=== PATIENT | female | born 1945 | race Caucasian/White ===

== ENCOUNTER 2022-07-16 10:59 | Outpatient (CLI) | payer MEDICARE, OTHER, SELFPAY ==
[2022-07-16 11:30] VITALS: BP 132/78; PULSE 79; RESP 18; O2SAT 98
[2022-07-16] MEDS: TETRACAINE 0.5% OPHTH 1 DROP EYE-RIGHT ×3 (11:34→12:00)
--- NOTE | 2022-07-16 12:18 | P.OPTPRC_ITS ---
Procedure Note Date of procedure: 07/16/22 Will [facility] bill your pro fee for this procedure?: Yes Procedure Description: SURGEON: Mary Barnett MD PREOPERATIVE DIAGNOSIS: Posterior capsular opacity, right eye POSTOPERATIVE DIAGNOSIS: Posterior capsular opacity, right eye PROCEDURE: YAG laser capsulotomy, right eye ANESTHESIA: Topical. ESTIMATED BLOOD LOSS: None PATHOLOGY SPECIMEN: None COMPLICATIONS: None INDICATIONS: See consult note for details. The risks, benefits and alternatives of the procedure were explained to the patient, who elected to proceed and signed informed consent to do so. PROCEDURE: The patient was brought to the pre-holding area where the right eye was identified as the operative eye. I placed my initials above this eye. The patient received 2 sets of 1 drop of 0.5% tetracaine and 1 drop of 1% tropicamide. They also received 1 drop of 2% dorzolazmide (due to brimonidine allergy). They received 1 drop of 0.5% tetracaine immediately prior to bringing them back for the procedure. The patient was then brought to the procedure room where the right eye was again identified as the operative eye. A YAG Brady capsulotomy lens was placed on the eye. The laser was administered using a total number of 22 shots with an energy of 2.4 mJ per shot for a total energy of 53 mJ. The patient tolerated the procedure well. DISPOSITION: The patient was taken back to the pre-holding area and given 1 drop of 2% dorzolamide in the right eye. They were discharged to home in stable condition. The patient was instructed to call me or go to the emergency department with any sudden change, including dramatic loss of vision, severe pain in the eye or eyebrow region, nausea, or vomiting. The patient was instructed to use the 2% dorzolamide 1 drop 2 times a day in the right eye for 1 week (use 3 more times today). The patient will follow up in the clinic in 1-2 weeks. Surgeon: Mary Barnett MD
== END 2022-07-16 12:09 | disposition home or self-care (01) ==
LOC: OP CLINIC 11:03 → EYE PRC 11:07
PROVIDERS: PCP Internal Medicine; Visit Provider Ophthalmology
DX: H26.9 Unspecified cataract (principal)
CPT/HCPCS: 66821

== ENCOUNTER 2022-08-17 13:56 | Emergency (ER) | payer MEDICARE, OTHER, SELFPAY ==
[2022-08-17] VITALS (36 sets, daily range): BP systolic 126–166; BP diastolic 56–97; PULSE 43–83; RESP 20; TEMP 36.4; O2SAT 86–99; BMI 24.3
--- NOTE | 2022-08-17 14:33 | CRLHL7_ITS ---
For Patients: As a result of the Cures Act, medical imaging exams and procedure reports are released immediately into your electronic medical record. You may view this report before your referring provider. If you have questions, please contact your health care provider. INDICATION: Shortness of breath TECHNIQUE: Chest radiograph 1 view COMPARISON: 06/23/2017 FINDINGS: Cardiovascular and mediastinum: Postsurgical changes from median sternotomy. Heart and mediastinal contours are stable. Lungs and pleural spaces: Both lungs are unremarkable in appearance. No sign of pleural effusion seen. No pneumothorax is identified. Bones and soft tissues: No significant findings. IMPRESSION: 1. No acute cardiopulmonary disease is seen. Dictated by Bubba Stratton MD @ 08/17/2022 3:32:12 PM Dictated by: Bubba Stratton MD @ 08/17/2022 15:32:18 (Electronically Signed)
[2022-08-17 15:03] LABS: Basophils Absolute Auto 0.02 K/uL (0.00-0.30); Basophils Percent Auto 0.3 % (0.0-3.0); Eosinophils Absolute Auto 0.11 K/uL (0.00-0.50); Eosinophils Percent Auto 1.7 % (0.0-7.0); Hemoglobin* 14.9 gm/dL (12.0-16.0); Immature Granulocytes Abs Auto 0.05 K/uL (0.00-0.30); Immature Granulocytes Pct Auto 0.8 %; Lymphocytes Absolute Auto 1.53 K/uL (0.90-2.90); Mean Corpuscular HGB Conc 33 gm/dL (32-36); Mean Corpuscular Hemoglobin 31 pg (26-34); Mean Corpuscular Volume 95 fL (80-100); Monocytes Percent Auto 10.2 % (0.0-11.0); Neutrophils Absolute Auto 4.27 K/uL (1.7-7.0); Platelet Count* 278 K/uL (140-440); RDW Coefficient of Variation % 13.5 % (11.5-15.5); Red Blood Count 4.75 m/uL (4.00-5.20); White Blood Count* 6.66 K/uL (4.50-11.00)
[2022-08-17 15:08] LABS: Slide Review Reflex No
[2022-08-17 15:15] LABS: Chloride* 107 mmol/L (96-114); Potassium* 4.3 mmol/L (3.6-5.1); Sodium* 142 mmol/L (135-149)
[2022-08-17 15:18] LABS: Creatinine* 0.9 mg/dL (0.5-1.5); Est. Creatinine Clearance* 40.21; Estimated Glomerular Filt Rate 67 ml/min
[2022-08-17 15:19] LABS: Blood Urea Nitrogen* 26 mg/dL (7-30); Carbon Dioxide* 30 mmol/L (20-32); Glucose* 108 mg/dL (60-115)
[2022-08-17 15:27] LABS: INR 1.03 (0.91-1.10); Prothrombin Time 14.1 Seconds
[2022-08-17 15:28] LABS: Partial Thromboplastin Time* 30 Seconds (23-33)
[2022-08-17 15:33] LABS: C Reactive Protein* < 0.5 mg/dL (0.5-1.0); NT Pro B Type NatriureticPept* 953 pg/mL
[2022-08-17 16:28] LABS: SARS PCR* Negative SARS-CoV-2 (Negative)
--- NOTE | 2022-08-17 16:51 | ED.GENADULT ---
HPI - General Adult General Date Seen: 08/17/22 Chief complaint: Chest Pain Stated complaint: AFIB, Short of breath Time Seen by Provider: 08/17/22 14:15 Source: patient History of Present Illness HPI narrative: Patient is a 77-year-old woman who comes in for evaluation of heart fluttering. She tells me that on , she was shoveling snow. She had a sharp, brief stabbing sensation in her chest, which worried her and so she stops shoveling and went inside. She notes that that lasted just for a few seconds, certainly under a minute, and has not recurred. It did not radiate, was not associated with any shortness of breath, nausea, sweating, or other symptoms. Since then however, she has noted that she has had a fluttering sensation in her chest. She mentions shortness of breath as well, though she notes that this has really been progressive for the past several months. It has been more more difficult for her to climb a flight of stairs. She does not get chest pain when she climbs stairs however. She has no history of congestive heart failure. She has not had any lower extremity swelling or pain. She denies fever or cough, no upper respiratory symptoms. She has a history of a valve replacement, in 2017, this is a porcine valve. She does not know which valve was replaced. She did have problems with atrial fibrillation after her surgery, and so she assumes that she has been in atrial fibrillation for the past few days. She was not started on anticoagulation after her atrial fibrillation either. She had been hoping things would improve, but she saw her son and [id number] who are both physicians yesterday, and they recommended that she be seen if she was not getting better. Therefore, she comes in today as her symptoms are persistent. She has not had any lightheadedness or fainting. She uses a couple of eyedrops, otherwise her only medication is lisinopril/hydrochlorothiazide. Related Data Home Medications Medication Instructions Recorded Confirmed dorzolamide 2 % eye drops 1 drp ophthalmic (eye) BID 08/17/22 08/17/22 latanoprost 0.005 % eye drops 1 drp ophthalmic (eye) HS 08/17/22 08/17/22 lisinopril 10 1 tab PO DAILY 08/17/22 08/17/22 mg-hydrochlorothiazide 12.5 mg tablet Allergies Allergy/AdvReac Type Severity Reaction Status Date / Time opiods Allergy vomiting Uncoded 08/17/22 14:14 and elevated b/p anesthesia AdvReac Uncoded 08/17/22 14:14 Review of Systems Status of ROS: Reports: 10 or more systems reviewed and unremarkable except as noted in History and below [facility] Social History Smoking Status: Never smoker Do you use any of these nicotine containing products: None Second hand tobacco smoke exposure: No How often do you have a drink containing alcohol: 2-4 times a month How many standard drinks containing alcohol do you have on a typical day: 1 or 2 How often do you have six or more drinks on one occasion: Never AUDIT-C Alcohol total score: 2 Non-prescribed substance use: denies use Exam Narrative: Exam Narrative: Vital signs as noted above. In general, an alert, well-appearing patient. Breathing easily. Head: Normocephalic, atraumatic. Eyes: Pupils are equal reactive. Extraocular movements are full. Conjunctivae are normal. ENT: Mucous membranes are moist. Throat is normal. Neck: Supple without lymphadenopathy. Heart: Irregular, regular dropped beats. Soft systolic murmur. Lungs: Clear bilaterally. No increased work of breathing, crackles or wheezes. Abdomen: Soft and nontender. No organomegaly. Extremities: Well perfused. No edema. No calf tenderness. Pulses intact. Neurologic: Patient is alert and oriented to person and place. Speech is fluent. Face is symmetric. Moves all extremities equally. Affect: Normal. Skin: Warm and dry. Well perfused. Const: Vital Signs, click to edit/add: Vital Signs - 24 hr 08/17/22 14:05 08/17/22 14:31 08/17/22 14:30 Temperature 97.5 F L Pulse Rate Pulse Rate [Pulse Oximeter] 70 Respiratory Rate 20 20 Blood Pressure Blood Pressure [Le ft Upper Arm] 156/69 H 153/89 H Pulse Oximetry 99 97 97 Oxygen Delivery Me thod Room Air Room Air 08/17/22 14:09 08/17/22 14:10 08/17/22 14:15 Temperature Pulse Rate 78 83 58 L Pulse Rate [Pulse Oximeter] Respiratory Rate Blood Pressure 156/69 H Blood Pressure [Le ft Upper Arm] Pulse Oximetry 98 98 98 Oxygen Delivery Me thod 08/17/22 14:30 08/17/22 14:32 08/17/22 14:45 Temperature Pulse Rate 74 72 64 Pulse Rate [Pulse Oximeter] Respiratory Rate Blood Pressure 153/89 H Blood Pressure [Le ft Upper Arm] Pulse Oximetry 97 95 96 Oxygen Delivery Me thod 08/17/22 15:00 08/17/22 15:04 08/17/22 15:05 Temperature Pulse Rate 58 L 76 59 L Pulse Rate [Pulse Oximeter] Respiratory Rate Blood Pressure Blood Pressure [Le ft Upper Arm] Pulse Oximetry 96 97 96 Oxygen Delivery Me thod 08/17/22 15:15 08/17/22 15:30 08/17/22 15:32 Temperature Pulse Rate 72 63 79 Pulse Rate [Pulse Oximeter] Respiratory Rate Blood Pressure 134/72 Blood Pressure [Le ft Upper Arm] Pulse Oximetry 97 97 97 Oxygen Delivery Me thod 08/17/22 15:45 08/17/22 16:00 08/17/22 16:02 Temperature Pulse Rate 48 L 78 58 L Pulse Rate [Pulse Oximeter] Respiratory Rate Blood Pressure 163/71 H Blood Pressure [Le ft Upper Arm] Pulse Oximetry 95 98 98 Oxygen Delivery Me thod 08/17/22 16:15 08/17/22 16:30 08/17/22 16:32 Temperature Pulse Rate 73 52 L 58 L Pulse Rate [Pulse Oximeter] Respiratory Rate Blood Pressure 148/66 H Blood Pressure [Le ft Upper Arm] Pulse Oximetry 96 97 97 Oxygen Delivery Me thod 08/17/22 16:45 08/17/22 17:00 08/17/22 17:02 Temperature Pulse Rate 56 L 52 L 55 L Pulse Rate [Pulse Oximeter] Respiratory Rate Blood Pressure 159/75 H Blood Pressure [Le ft Upper Arm] Pulse Oximetry 98 97 95 Oxygen Delivery Me thod 08/17/22 17:15 08/17/22 17:43 08/17/22 17:44 Temperature Pulse Rate 56 L 61 63 Pulse Rate [Pulse Oximeter] Respiratory Rate Blood Pressure 166/71 H Blood Pressure [Le ft Upper Arm] Pulse Oximetry 96 86 L 97 Oxygen Delivery Me thod 08/17/22 17:45 08/17/22 18:00 08/17/22 18:02 Temperature Pulse Rate 59 L 64 51 L Pulse Rate [Pulse Oximeter] Respiratory Rate Blood Pressure 146/56 H Blood Pressure [Le ft Upper Arm] Pulse Oximetry 93 97 97 Oxygen Delivery Me thod 08/17/22 18:15 08/17/22 18:30 08/17/22 18:31 Temperature Pulse Rate 67 43 L 59 L Pulse Rate [Pulse Oximeter] Respiratory Rate Blood Pressure 126/73 Blood Pressure [Le ft Upper Arm] Pulse Oximetry 98 96 97 Oxygen Delivery Me thod 08/17/22 18:45 08/17/22 18:51 08/17/22 19:00 Temperature Pulse Rate 59 L 53 L 43 L Pulse Rate [Pulse Oximeter] Respiratory Rate Blood Pressure 143/68 H Blood Pressure [Le ft Upper Arm] Pulse Oximetry 97 99 98 Oxygen Delivery Me thod 08/17/22 19:02 Temperature Pulse Rate Pulse Rate [Pulse Oximeter] Respiratory Rate Blood Pressure 136/97 H Blood Pressure [Le ft Upper Arm] Pulse Oximetry Oxygen Delivery Me thod Course Course Hospital Course: On arrival, patient had an EKG. By my review, this shows a ventricular rate of 69 beats per minute, second-degree Mobitz type 2 av block with occasional PACs. Without the PACs, every 3rd beat is dropped. Patient is hemodynamically stable and largely asymptomatic, with the exception of some shortness of breath, which does not seem to be entirely acute. Pacer pads were placed. I ran a point of care troponin which was 0. I recommended that she be transferred for pacemaker placement. My 1st call was to [facility] as that is where her valve was placed. I was told that they did not have any beds available, and that while I could talk with Cardiology for advice, they would not be able to help with bed placement. Therefore, I called multiple hospitals around [facility] and looking for somewhere to transfer for pacemaker placement. Ultimately, I was able to find a bed in [place] and talk with the textile coating machine operator, Dr. Escalona, there. They accepted the patient in transfer. Shortly thereafter, I was made aware that the patient's son, who is a hospitalist at [facility], had called and said that they now had a bed available at [facility]. Therefore, I talked with the textile coating machine operator, Dr. Newman, who agreed that the patient needed pacemaker placement. He accepted the patient in transfer. Labs are unremarkable. Hemoglobin is 14.9. Coags are normal. Metabolic panel is normal, sodium 142, potassium 4.3. TSH normal, BNP 953, in the indeterminate zone. COVID negative. Patient has been without complaints throughout her time in the emergency department. Vital Signs Vital signs: Initial Vital Signs Temperature 97.5 F L 08/17/22 14:05 Temperature Source Temporal Artery Scan 08/17/22 14:05 Pulse Rate 70 08/17/22 14:05 Respiratory Rate 20 08/17/22 14:05 Blood Pressure 156/69 H 08/17/22 14:05 Blood Pressure Mean 98 08/17/22 14:05 Blood Pressure Position Semi-Fowlers 08/17/22 14:05 Pulse Oximetry 99 08/17/22 14:05 Oxygen Delivery Method 08/17/22 14:05 Vital Signs Temperature 97.5 F L 08/17/22 14:05 Pulse Rate 70 08/17/22 14:05 Respiratory Rate 20 08/17/22 14:05 Blood Pressure 156/69 H 08/17/22 14:05 Pulse Oximetry 99 08/17/22 14:05 Oxygen Delivery Method 08/17/22 14:05 Temperature 97.5 F L 08/17/22 14:05 Pulse Rate 43 L 08/17/22 19:00 Respiratory Rate 20 08/17/22 14:31 Blood Pressure 136/97 H 08/17/22 19:02 Pulse Oximetry 98 08/17/22 19:00 Oxygen Delivery Method 08/17/22 14:31 Medical Decision Making Lab Data Labs: Lab Results 08/17/22 08/17/22 08/17/22 Range/Units 14:50 14:50 14:50 WBC 6.66 (4.50-11.00) K/uL RBC 4.75 (4.00-5.20) m/uL Hgb 14.9 (12.0-16.0) gm/dL Hct 45.0 (33.0-51.0) % MCV 95 (80-100) fL MCH 31 (26-34) pg MCHC 33 (32-36) gm/dL RDW Coeff of Jose 13.5 (11.5-15.5) % Plt Count 278 (140-440) K/uL Neut % (Auto) 64.0 (42.0-72.0) % Lymph % (Auto) 23.0 (20-44) % [place] % (Auto) 10.2 (0.0-11.0) % Eos % (Auto) 1.7 (0.0-7.0) % Baso % (Auto) 0.3 (0.0-3.0) % Neut # (Auto) 4.27 (1.7-7.0) K/uL Lymph # (Auto) 1.53 (0.90-2.90) K/uL [place] # (Auto) 0.70 (0.00-0.90) K/UL Eos # (Auto) 0.11 (0.00-0.50) K/uL Baso # (Auto) 0.02 (0.00-0.30) K/uL INR 1.03 (0.91-1.10) APTT 30 (23-33) Seconds Sodium 142 (135-149) mmol/L Potassium 4.3 (3.6-5.1) mmol/L Chloride 107 (96-114) mmol/L Carbon Dioxide 30 (20-32) mmol/L BUN 26 (7-30) mg/dL Creatinine 0.9 (0.5-1.5) mg/dL Estimated Creat Clear 40.21 Estimated GFR 67 ml/min Glucose 108 (60-115) mg/dL Calcium 10.0 (8.4-10.6) mg/dL C-Reactive Protein < 0.5 L (0.5-1.0) mg/dL NT-Pro-B Natriuret Pep 953 pg/mL TSH (0.270-4.200) uIU/mL SARS-CoV-2 (PCR) (Negative) POC Troponin I (0.01-0.04) ng/ml 08/17/22 08/17/22 08/17/22 Range/Units 14:50 14:50 15:42 WBC (4.50-11.00) K/uL RBC (4.00-5.20) m/uL Hgb (12.0-16.0) gm/dL Hct (33.0-51.0) % MCV (80-100) fL MCH (26-34) pg MCHC (32-36) gm/dL RDW Coeff of Jose (11.5-15.5) % Plt Count (140-440) K/uL Neut % (Auto) (42.0-72.0) % Lymph % (Auto) (20-44) % [place] % (Auto) (0.0-11.0) % Eos % (Auto) (0.0-7.0) % Baso % (Auto) (0.0-3.0) % Neut # (Auto) (1.7-7.0) K/uL Lymph # (Auto) (0.90-2.90) K/uL [place] # (Auto) (0.00-0.90) K/UL Eos # (Auto) (0.00-0.50) K/uL Baso # (Auto) (0.00-0.30) K/uL INR (0.91-1.10) APTT (23-33) Seconds Sodium (135-149) mmol/L Potassium (3.6-5.1) mmol/L Chloride (96-114) mmol/L Carbon Dioxide (20-32) mmol/L BUN (7-30) mg/dL Creatinine (0.5-1.5) mg/dL Estimated Creat Clear Estimated GFR ml/min Glucose (60-115) mg/dL Calcium (8.4-10.6) mg/dL C-Reactive Protein (0.5-1.0) mg/dL NT-Pro-B Natriuret Pep pg/mL TSH 1.210 (0.270-4.200) uIU/mL SARS-CoV-2 (PCR) Negative SARS-CoV-2 (Negative) POC Troponin I 0.00 L (0.01-0.04) ng/ml Discharge Plan Discharge Clinical Impression: Mobitz type 2 second degree AV block Patient Disposition: Xfer [facility] Condition: Stable Prescriptions: No Action dorzolamide 2 % drops 1 drp ophthalmic (eye) BID latanoprost 0.005 % drops 1 drp ophthalmic (eye) HS Label Comments: INSTILL 1 DROP INTO BOTH EYES AT BEDITME lisinopril-hydrochlorothiazide 10-12.5 mg tablet 1 tab PO DAILY Label Comments: TAKE 1 TABLET BY MOUTH EVERY DAY Stand Alone Forms: MyHealth Info Instructions
--- NOTE | 2022-08-17 17:22 | ED.NURSE ---
[facility] was called for transport . will be here~1815.
--- NOTE | 2022-08-17 17:29 | ED.NURSE ---
will be going to [facility] ed and will be assigned a bed from there. was up to br to void. denies pain.
--- NOTE | 2022-08-17 17:33 | ED.NURSE ---
Addendum entered by Ness Kaiser RN 08/17/22 17:47: pacer pads were placed soon after arrival~1420. Original Note: pacer pads were placed per order of dr oreilly. is in 2nd degree heart block type 1.
[2022-08-17] MEDS: ASPIRIN 81 MG TAB.CHEW 324 MG PO (19:00)
--- NOTE | 2022-08-17 19:10 | ED.NURSE ---
transferred to [facility] via [facility].
--- NOTE | 2022-08-17 20:39 | ED.NURSE ---
report was given to wendy alonso at [facility].
== END 2022-08-17 19:10 | disposition short-term general hospital (02) ==
PROVIDERS: Emergency Provider Emergency Medicine; PCP Internal Medicine
DX: I44.1 Atrioventricular block, second degree (principal)
CPT/HCPCS: 36415; 71045; 80048; 83880; 84443; 84484; 85025; 85610; 85730; 86140; 87635; 93005; 94761; 99284; 99285; A9270

== ENCOUNTER 2022-08-17 19:05 | Outpatient (CLI) | payer MEDICARE, OTHER, SELFPAY | END 2022-08-17 19:06 | disposition home or self-care (01) | LOC: AMB 08-21 14:28 | PROVIDERS: PCP Internal Medicine; Visit Provider Family Medicine | DX: I49.9 Cardiac arrhythmia, unspecified (principal) | CPT/HCPCS: A0425; A0426 ==

== ENCOUNTER 2022-09-02 13:58 | Outpatient (CLI) | payer MEDICARE, OTHER, SELFPAY ==
[2022-09-02 16:18] LABS: Chloride* 103 mmol/L (96-114); Potassium* 4.1 mmol/L (3.6-5.1); Sodium* 140 mmol/L (135-149)
[2022-09-02 16:21] LABS: Blood Urea Nitrogen* 27 mg/dL (7-30); Carbon Dioxide* 29 mmol/L (20-32); Creatinine* 0.7 mg/dL (0.5-1.5); Estimated Glomerular Filt Rate 90 ml/min; Glucose* 92 mg/dL (60-115)
[2022-09-02 16:22] LABS: Calcium* 10.1 mg/dL (8.4-10.6); HDL Cholesterol* 87 mg/dL (>=50); Triglycerides* 77 mg/dL (40-149)
[2022-09-02 16:37] LABS: Vitamin D 25 Hydroxy* 48 ng/mL (30-80)
[2022-09-03 19:06] LABS: Cholesterol* 183 mg/dL (90-199); LDL Cholesterol Calculated 81 mg/dL (<100)
== END 2022-09-02 13:59 | disposition home or self-care (01) ==
PROVIDERS: PCP Internal Medicine; Visit Provider Internal Medicine
DX: M85.80 Other specified disorders of bone density and structure, unspecified site (principal); I10 Essential (primary) hypertension; Z95.0 Presence of cardiac pacemaker; Z13.6 Encounter for screening for cardiovascular disorders
CPT/HCPCS: 80048; 80061; 82306

== ENCOUNTER 2023-11-03 10:28 | Outpatient (CLI) | payer MEDICARE, OTHER, SELFPAY | END 2023-11-03 10:29 | disposition home or self-care (01) | LOC: NFLDREF 11-17 12:00 | PROVIDERS: PCP Internal Medicine; Referring Provider Internal Medicine; Visit Provider Internal Medicine | DX: I10 Essential (primary) hypertension (principal) | CPT/HCPCS: 80048 ==

== ENCOUNTER 2024-11-03 10:00 | Outpatient (CLI) | payer MEDICARE, OTHER, SELFPAY | END 2024-11-03 10:01 | disposition home or self-care (01) | LOC: NFLDREF 11-05 04:04 | PROVIDERS: PCP Internal Medicine; Referring Provider Internal Medicine; Visit Provider Internal Medicine | DX: I10 Essential (primary) hypertension (principal); M85.80 Other specified disorders of bone density and structure, unspecified site | CPT/HCPCS: 80048; 82306 ==

== ENCOUNTER 2025-04-06 13:29 | Outpatient (CLI) | payer MEDICARE, OTHER, SELFPAY | END 2025-04-06 13:30 | disposition home or self-care (01) | PROVIDERS: PCP Internal Medicine; Visit Provider Internal Medicine | DX: R19.4 Change in bowel habit (principal) | CPT/HCPCS: 80053; 83735; 84443 ==

== ENCOUNTER 2025-04-11 14:34 | Outpatient (CLI) | payer MEDICARE, OTHER, SELFPAY ==
--- NOTE | 2025-04-11 15:00 | CRLHL7_ITS ---
For Patients: As a result of the Century Cures Act, medical imaging exams and procedure reports are released immediately into your electronic medical record. You may view this report before your referring provider. If you have questions, please contact your health care provider. Indication: DISTENTION, CHANGE IN BOWEL HABITS, STOOL FLAT AND SMALL IN SIZE SINCE DECEMBER 2024 Technique: CT Abdomen/Pelvis 66CC ISOVUE 370 INTRAVENOUS CONTRAST AND WATER PREP Please note that all CT scans at this facility use dose modulation, iterative reconstruction, and/or weight-based dosing when appropriate to reduce radiation dose to as low as reasonably achievable. Comparison: None Findings: Mild scarring in the lung bases. Cardiomegaly. Liver measures 17.5 cm. No intrahepatic mass. Normal spleen. Pancreas normal. Normal gallbladder. Mild thickening of the adrenal glands without nodule. Kidneys normal. No hydronephrosis. No retroperitoneal or mesenteric adenopathy. No pelvic or inguinal adenopathy. Bladder normal. Postop changes appendectomy, hysterectomy and bilateral oophorectomy. No pelvic mass. Some asymmetry of the rectum may be present although this could be related to incomplete distention. Normal ureters. No bowel obstruction or free air. No free fluid or abscess. No abdominal wall hernia. No fracture. Degenerative alignment at L3-4, L4-5 and L5-S1. Degenerative changes of both hips with chondrocalcinosis. Impression: No bowel obstruction or inflammatory change. Asymmetry of the rectum may be present although this could be artifactual related to incomplete distention. Recommend correlation with colonoscopy. Hepatomegaly. No intrahepatic mass or ascites. Please note that all CT scans at this facility use dose modulation, iterative reconstruction, and/or weight-based dosing when appropriate to reduce radiation dose to as low as reasonably achievable. Dictated by Misael Braswell MD @ 04/12/2025 8:53:39 AM (Electronically Signed)
== END 2025-04-11 14:35 | disposition home or self-care (01) ==
LOC: CT 14:37
PROVIDERS: PCP Internal Medicine; Visit Provider Internal Medicine
DX: R19.4 Change in bowel habit (principal); R16.0 Hepatomegaly, not elsewhere classified
CPT/HCPCS: 74177; Q9967